=== PATIENT | male | born 1945 | race Hispanic/Latino ===

== ENCOUNTER 2018-03-02 23:14 | Observation (INO) | payer MEDICARE, BC ==
[2018-03-02 23:24] VITALS: BMI 20.2
[2018-03-02] MEDS ORDERED: Morphine 2 mg/ml ISec IVP STA (23:36)
--- NOTE | 2018-03-02 23:39 | ED PDOC ---
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 Patient denies any fever, chills, chest pain, shortness of breath, nausea, vomiting, diarrhea, neck pain, headache, dizziness , or any other complaints. Symptom Onset: Gradual Symptom Course: Unchanged Activities at Onset: Light Context: Home Past Medical History - Provider Review Nursing Documentation Reviewed: Yes - Infectious Disease Hx of Infectious Diseases: None - Cardiac Hx Cardiac Disorders: Yes Hx Hypertension: Yes Other/Comment: CAD - Pulmonary Hx Respiratory Disorders: No - Neurological Hx Neurological Disorder: No - HEENT Hx HEENT Disorder: No - Renal Hx Renal Disorder: No - Endocrine/Metabolic Hx Endocrine Disorders: No - Hematological/Oncological Hx Anemia: Yes Hx Blood Transfusions: Yes Hx Blood Transfusion Reaction: No Hx Cancer: Yes (Kidney Cancer) Other/Comment: L kidney only - Integumentary Hx Melanoma: Yes - Musculoskeletal/Rheumatological Hx Falls: No - Gastrointestinal Hx Gastrointestinal Disorders: Yes (CONSTIPATION) - Genitourinary/Gynecological Hx Genitourinary Disorders: Yes (TRANSITIONAL CELL CA(stage 4) URETER) Hx Reproductive Disorders: No - Psychiatric Hx Anxiety: Yes Hx Depression: Yes Hx Substance Use: No - Surgical History Hx Cardiac Catheterization: Yes Other/Comment: CARDIAC CATHETERIZATION WITH STENT PLACEMENT - Anesthesia Hx Anesthesia: Yes Hx Anesthesia Reactions: No Hx Malignant Hyperthermia: No Family/Social History - Physician Review Nursing Documentation Reviewed: Yes Family/Social History: Unknown Family HX Smoking Status: Former Smoker Hx Alcohol Use: No Hx Substance Use: No Allergies/Home Meds Allergies/Adverse Reactions: Allergies iodine Allergy (Verified 03/03/18 05:11) RASH Penicillins Allergy (Verified 03/03/18 05:11) DIZZINESS Home Medications: Home Meds Medication Instructions Recorded Confirmed Atorvastatin Calcium [Lipitor] 40 mg PO DAILY 07/22/15 03/03/18 Nitroglycerin 0.4 mg/hr [Nitro-Dur 0.4 mg TD DAILY 07/23/15 03/03/18 0.4 mg/hr Patch] Metoprolol Succinate XL [Toprol XL] 200 mg PO DAILY 04/15/16 03/03/18 Loperamide [Imodium] 2 mg PO Q4H PRN 08/04/16 03/03/18 Budesonide/Formoterol Fumarate 1 aer IH BID PRN 03/03/18 03/03/18 [Symbicort 160-4.5 Mcg Inhaler] Review of Systems - Physician Review All systems were reviewed & negative as marked: Yes - Review of Systems Constitutional: Normal. absent: Fevers Eyes: Normal ENT: Normal Respiratory: Normal. absent: SOB, Cough Cardiovascular: Normal. absent: Chest Pain Gastrointestinal: Abdominal Pain, Other (+right inguinal hernia). absent: Diarrhea, Nausea, Vomiting Genitourinary Male: Normal. absent: Dysuria, Frequency, Hematuria, Urinary Output Changes Musculoskeletal: Normal. absent: Back Pain, Neck Pain Skin: Normal. absent: Rash Neurological: Normal. absent: Headache, Dizziness Endocrine: Normal Hemo/Lymphatic: Normal Psychiatric: Normal Physical Exam Vital Signs Reviewed: Yes Vital Signs Temp Pulse Resp BP Pulse Ox 03/03/18 04:05 98.2 F 72 17 136/76 98 03/03/18 03:50 72 17 136/76 98 03/02/18 23:28 97.9 F 67 18 202/98 H 100 Temperature: Afebrile Blood Pressure: Hypertensive Pulse: Regular Respiratory Rate: Normal Appearance: Positive for: Well-Appearing, Non-Toxic, Comfortable Pain Distress: None Mental Status: Positive for: Alert and Oriented X 3 - Systems Exam Head: Present: Atraumatic, Normocephalic Pupils: Present: PERRL Extroacular Muscles: Present: EOMI Conjunctiva: Present: Normal Mouth: Present: Moist Mucous Membranes Neck: Present: Normal Range of Motion Respiratory/Chest: Present: Clear to Auscultation, Good Air Exchange. No: Respiratory Distress, Accessory Muscle Use Cardiovascular: Present: Regular Rate and Rhythm, Normal S1, S2. No: Murmurs Abdomen: No: Tenderness, Distention, Peritoneal Signs Genitourinary Male: Present: Hernias (Large right inguinal hernia extending in to the scrotum with palpable tenderness) Back: Present: Normal Inspection Upper Extremity: Present: Normal Inspection. No: Cyanosis, Edema Lower Extremity: Present: Normal Inspection. No: Edema Neurological: Present: GCS=15, CN II-XII Intact, Speech Normal Skin: Present: Warm, Dry, Normal Color. No: Rashes Psychiatric: Present: Alert, Oriented x 3, Normal Insight, Normal Concentration Medical Decision Making ED Course and Treatment: 03/02/18 23:36 Impression: 73 year old male complaining of lower abdominal pain and right inguinal hernia pain. Plan: -- CT Abdomen and Pelvis with IV contrast -- Labs -- IV fluids -- Zofran -- Morphine -- Reassess and disposition Prior Visits: Notes and results from previous visits were reviewed. Progress Notes: 03/02/18 23:[address] Aaron, rn medical surgical sourcing consultant, who is aware and agrees to evaluate pt. 03/03/18 00:40 Right inguinal hernia reduced without complications. Pt tolerated well. 03/03/18 00:[address] Mejia, who is aware and agrees with plan. Accepts pt in to his service. 03/03/18 00:[address] Lizeth Morel, surgeon, who is aware and agrees to consult on case. 03/03/18 03:01 Reviewed EKG, sinus bradycardia at 50 bpm. Septal infarct. Non-specific ST/T wave changes. - Lab Interpretations Lab Results: 03/02/18 23:44 03/02/18 23:44 Lab Results 03/02/18 23:44: PT 12.3, INR 1.08, APTT 31.6 03/02/18 23:44: WBC 9.1 D, RBC 5.29, Hgb 14.5, Hct 42.0, MCV 79.4 L, MCH 27.4, MCHC 34.5, RDW 16.5 H, Plt Count 105 L, MPV 8.5 03/02/18 23:44: Sodium 144, Potassium 4.4, Chloride 105, Carbon Dioxide 26, Anion Gap 17, BUN 22 H, Creatinine 1.5, Est GFR ( Amer) 55, Est GFR (Non- Af Amer) 46, Random Glucose 107, Calcium 9.5, Total Bilirubin 0.8, AST 18, ALT 22, Alkaline Phosphatase 77, Total Protein 7.4, Albumin 4.2, Globulin 3.2, Albumin/Globulin Ratio 1.3 I have reviewed the lab results: Yes - RAD Interpretation Radiology Orders: 03/02/18 23:40 ABD & PELVIS W/O PO OR IV CONT [CT] Stat 03/03/18 00:56 CHEST PORTABLE [RAD] Stat - Medication Orders Current Medication Orders: Discontinued Medications Albuterol/Ipratropium (Duoneb 3 Mg/0.5 Mg (3 Ml) Ud) 3 ml IH [id number] GOLDY Albuterol/Ipratropium (Duoneb 3 Mg/0.5 Mg (3 Ml) Ud) 3 ml IH Q2H PRN PRN Reason: Shortness of Breath Amlodipine Besylate (Norvasc) 5 mg PO DAILY GOLDY Aspirin (Aspirin Chewable) 81 mg PO DAILY GOLDY Atorvastatin Calcium (Lipitor) 40 mg PO DIN [facility] Sodium Chloride (Sodium Chloride 0.9%) 1,000 mls @ 100 mls/hr IV .Q10H [facility] Last Admin: 03/02/18 23:49 Dose: 100 mls/hr eMAR Start Stop Document 03/02/18 23:49 IT (Rec: 03/02/18 23:50 IT [id number]) Intravenous Solution Start Date 03/02/18 Start Time 23:50 Lisinopril (Zestril) 10 mg PO DAILY [facility] Metoprolol Succinate (Toprol Xl) 200 mg PO BRK [facility] Last Admin: 03/03/18 09:54 Dose: 200 mg Morphine Sulfate (Morphine) 4 mg IVP STAT STA Stop: 03/02/18 23:37 Last Admin: 03/02/18 23:49 Dose: 4 mg MAR Pain Assessment Document 03/02/18 23:49 IT (Rec: 03/02/18 23:49 IT [id number]) Pain Reassessment Is this a pain reassessment? No Sleep Is patient sleeping during reassessment? No Presence of Pain Presence of Pain Yes Pain Scale Used Pain Scale Used Numeric Location Left, Right or Bilateral Right Pain Location Body Site Groin IVP Administration Document 03/02/18 23:49 IT (Rec: 03/02/18 23:49 IT [id number]) Charges for Administration # of IVP Administrations 1 Nitroglycerin (Nitro-Dur 0.4 Mg/Hr Patch) 1 patch TD DAILY [facility] Last Admin: 03/03/18 09:43 Dose: 1 patch MAR Transdermal Patch Site Document 03/03/18 09:43 MCV (Rec: 03/03/18 09:43 MCV [id number]) Transdermal Patch Site Transdermal Patch Site Right Shoulder Ondansetron HCl (Zofran Inj) 4 mg IVP ONCE ONE Stop: 03/02/18 23:37 Last Admin: 03/02/18 23:49 Dose: 4 mg IVP Administration Document 03/02/18 23:49 IT (Rec: 03/02/18 23:49 IT [id number]) Charges for Administration # of IVP Administrations 1 - Scribe Statement The provider has reviewed the documentation as recorded by the Elle Dumont Provider Scribe Attestation: All medical record entries made by the Scribe were at my direction and personally dictated by me. I have reviewed the chart and agree that the record accurately reflects my personal performance of the history, physical exam, medical decision making, and the department course for this patient. I have also personally directed, reviewed, and agree with the discharge instructions and disposition. Disposition/Present on Arrival - Present on Arrival Any Indicators Present on Arrival: No History of DVT/PE: No History of Uncontrolled Diabetes: No Urinary Catheter: No History of Decub. Ulcer: No History Surgical Site Infection Following: None - Disposition Have Diagnosis and Disposition been Completed?: Yes Diagnosis: Inguinal hernia Disposition: HOSPITALIZED Disposition Time: 01:48 Condition: STABLE
[2018-03-02] MEDS ORDERED: Sodium Chloride 0.9% 1,000 ML IV SCH (23:45)
[2018-03-02 23:53] LABS: HEMOGLOBIN 14.5 g/dL (14.0-18.0); MEAN CELL VOLUME 79.4 fl (80.0-105.0); MEAN CORPUSCULAR HEMOGLOBIN 27.4 pg (25.0-35.0); MEAN CORPUSCULAR HGB CONC 34.5 g/dl (31.0-37.0); MEAN PLATELET VOLUME 8.5 fl (7.0-11.0); RBC 5.29 10^6/uL (3.5-6.1); RED CELL DISTRIBUTION WIDTH 16.5 % (11.5-14.5)
[2018-03-03 00:06] LABS: WHITE BLOOD COUNT 9.1 10^3/ul (4.5-11.0)
[2018-03-03 00:26] LABS: ALB/GLOB RATIO 1.3 (1.1-1.8); ALBUMIN 4.2 g/dL (3.0-4.8); CALCIUM 9.5 mg/dL (8.4-10.5)
--- NOTE | 2018-03-03 00:41 | CP.PCM.CON ---
History of Present Illness - History of Present Illness History of Present Illness: General Surgery Consult Note for Dr. Garvey Reason for consult: Right inguinal hernia 73 M with PMH that includes kidney CA s/p nephrectomy, HTN [place] [facility] [place] of right inguinal hernia that is enlarging. Patient was seen and evaluated in the ED. Patient states that he has had the hernia since 2014 but has gotten larger over the last month. Patient has been unable to address this issue because he takes care of his . The last couple days he feels as if hernia had increased in size. Patient currently denies pain. Denies fever/chills , chest pain, SOB, abdominal pain, nausea/vomiting, diarrhea, constipation, melena, hematochezia. PMH: kidney CA s/p nephrectomy, HTN Meds: As per EMR ALL: Iodine, PCN PSH: Nephrectomy FH: non-contributory Social: former smoke Review of Systems - Review of Systems All systems: reviewed and no additional remarkable complaints except (as per HPI ) Past Patient History - Infectious Disease Hx of Infectious Diseases: None - Past Medical History & Family History Past Medical History?: Yes - Past Social History Smoking Status: Former Smoker - CARDIAC Hx Cardiac Disorders: Yes Hx Hypertension: Yes Other/Comment: CAD - PULMONARY Hx Respiratory Disorders: No - NEUROLOGICAL Hx Neurological Disorder: No - HEENT Hx HEENT Problems: No - RENAL Hx Chronic Kidney Disease: No - ENDOCRINE/METABOLIC Hx Endocrine Disorders: No - HEMATOLOGICAL/ONCOLOGICAL Hx Anemia: Yes Hx Blood Transfusions: Yes Hx Blood Transfusion Reaction: No Hx Cancer: Yes (Kidney Cancer) Other/Comment: L kidney only - INTEGUMENTARY Hx Melanoma: Yes - MUSCULOSKELETAL/RHEUMATOLOGICAL Hx Falls: No - GASTROINTESTINAL Hx Gastrointestinal Disorders: Yes (CONSTIPATION) - GENITOURINARY/GYNECOLOGICAL Hx Genitourinary Disorders: Yes (TRANSITIONAL CELL CA(stage 4) URETER) Hx Reproductive Disorders: No - PSYCHIATRIC Hx Anxiety: Yes Hx Depression: Yes Hx Substance Use: No - SURGICAL HISTORY Hx Cardiac Catheterization: Yes Other/Comment: CARDIAC CATHETERIZATION WITH STENT PLACEMENT - ANESTHESIA Hx Anesthesia: Yes Hx Anesthesia Reactions: No Hx Malignant Hyperthermia: No Meds Allergies/Adverse Reactions: Allergies Allergy/AdvReac Type Severity Reaction Status Date / Time iodine Allergy RASH Verified 03/03/18 05:11 Penicillins Allergy DIZZINESS Verified 03/03/18 05:11 - Medications Medications: Current Medications Sodium Chloride (Sodium Chloride 0.9%) 1,000 mls @ 100 mls/hr IV .Q10H GOLD[facility] Last Admin: 03/02/18 23:49 Dose: 100 mls/hr Physical Exam - Constitutional Appears: No Acute Distress - Head Exam Head Exam: ATRAUMATIC, NORMOCEPHALIC - Eye Exam Eye Exam: EOMI, Normal appearance Pupil Exam: PERRL - ENT Exam ENT Exam: Mucous Membranes Moist - Respiratory Exam Respiratory Exam: NORMAL BREATHING PATTERN - Cardiovascular Exam Cardiovascular Exam: REGULAR RHYTHM - GI/Abdominal Exam GI & Abdominal Exam: Hernia (right inguinal hernia reducible without bulging), Normal Bowel Sounds, Soft. absent: Distended, Firm, Guarding, Mass, Rebound, Rigid, Tenderness - Extremities Exam Extremities exam: Positive for: normal capillary refill, pedal pulses present. Negative for: calf tenderness - Back Exam Back exam: absent: CVA tenderness (L), CVA tenderness (R) - Neurological Exam Neurological exam: Alert, CN II-XII Intact, Oriented x3 - Psychiatric Exam Psychiatric exam: Normal Affect, Normal Mood - Skin Skin Exam: Dry, Intact, Normal Color, Warm Results - Vital Signs Recent Vital Signs: Last Vital Signs Temp 97.9 F 03/02/18 23:28 Pulse 67 03/02/18 23:28 Resp 18 03/02/18 23:28 BP 202/98 H 03/02/18 23:28 Pulse Ox 100 03/02/18 23:28 - Labs Result Diagrams: 03/02/18 23:44 03/02/18 23:44 Labs: Laboratory Results - last 24 hr 03/02/18 03/02/18 23:44 23:44 WBC 9.1 D RBC 5.29 Hgb 14.5 Hct 42.0 MCV 79.4 L MCH 27.4 MCHC 34.5 RDW 16.5 H Plt Count 105 L MPV 8.5 Sodium 144 Potassium 4.4 Chloride 105 Carbon Dioxide 26 Anion Gap 17 BUN 22 H Creatinine 1.5 Est GFR ( Amer) 55 Est GFR (Non-Af Amer) 46 Random Glucose 107 Calcium 9.5 Total Bilirubin 0.8 AST 18 ALT 22 Alkaline Phosphatase 77 Total Protein 7.4 Albumin 4.2 Globulin 3.2 Albumin/Globulin Ratio 1.3 Assessment & Plan - Assessment and Plan (Free Text) Assessment: 73 M with right inguinal hernia Plan: -Plan for elective repair Wednesday 03/07 -Patient can be discharged from surgical standpoint -Medical optimization -Pre-operative work up -Further recommendations as per Dr. Guru Aaron PGY1
[2018-03-03] MEDS ORDERED: Iodixanol 320 MG/ML 100 ML BOTTLE IV ONE (00:54)
[2018-03-03 01:13] LABS: INR 1.08 (0.93-1.08); PARTIAL THROMBOPLASTIN TIME 31.6 Seconds (25.1-36.5); PROTHROMBIN TIME 12.3 SECONDS (9.4-12.5)
[2018-03-03 05:34] VITALS: BP 143/74; PULSE 52; RESP 18; TEMP 97.5
--- NOTE | 2018-03-03 06:49 | CP.PCM.PCO ---
Physician Communication Note - Physician Communication Note Physician Communication Note: Recommend OR(Herniorraphy) Today
[2018-03-03] MEDS ORDERED: Metoprolol Succinate 100 mg XL Tab PO SCH (08:00)
--- NOTE | 2018-03-03 08:20 | CP.PCM.HP ---
History of Present Illness - History of Present Illness History of Present Illness: 73 year old male with history of Coronary artery disease, hypertension , chronic obstructive pulmonary disease, hyperlipidemia and right nephrectomy for transitional cell carcinoma of the kidney presented to the ER with severe abdominal and inguinal pain. Patient says he lifted a garbage can and then felt this severe pain. Patient was given morphine and says that pain was relieved. This morning, he feels better. He will have hernia surgery by Dr. Garvey. Present on Admission - Present on Admission Any Indicators Present on Admission: No History of DVT/PE: No History of Uncontrolled Diabetes: No Urinary Catheter: No Decubitus Ulcer Present: No Review of Systems - Constitutional Constitutional: absent: Chills, Fever, Headache - Cardiovascular Cardiovascular: absent: Chest Pain, Diaphoresis, Dyspnea - Respiratory Respiratory: absent: Cough, Dyspnea, Wheezing - Gastrointestinal Gastrointestinal: absent: Abdominal Pain, Nausea, Vomiting Past Patient History - Infectious Disease Hx of Infectious Diseases: None - Past Medical History & Family History Past Medical History?: Yes - Past Social History Smoking Status: Former Smoker - CARDIAC Hx Cardiac Disorders: Yes Hx Hypertension: Yes Other/Comment: CAD - PULMONARY Hx Respiratory Disorders: No - NEUROLOGICAL Hx Neurological Disorder: No - HEENT Hx HEENT Problems: No - RENAL Hx Chronic Kidney Disease: No - ENDOCRINE/METABOLIC Hx Endocrine Disorders: No - HEMATOLOGICAL/ONCOLOGICAL Hx Anemia: Yes Hx Cancer: Yes (Kidney Cancer) Other/Comment: L kidney only - INTEGUMENTARY Hx Melanoma: Yes - MUSCULOSKELETAL/RHEUMATOLOGICAL Hx Falls: No - GASTROINTESTINAL Hx Gastrointestinal Disorders: Yes (CONSTIPATION) - GENITOURINARY/GYNECOLOGICAL Hx Genitourinary Disorders: Yes (TRANSITIONAL CELL CA(stage 4) URETER) - PSYCHIATRIC Hx Anxiety: Yes Hx Depression: Yes - SURGICAL HISTORY Hx Cardiac Catheterization: Yes Other/Comment: CARDIAC CATHETERIZATION WITH STENT PLACEMENT - ANESTHESIA Hx Anesthesia: Yes Hx Anesthesia Reactions: No Hx Malignant Hyperthermia: No Meds Allergies/Adverse Reactions: Allergies Allergy/AdvReac Type Severity Reaction Status Date / Time iodine Allergy RASH Verified 03/03/18 05:11 Penicillins Allergy DIZZINESS Verified 03/03/18 05:11 Physical Exam - Constitutional Appears: No Acute Distress - Head Exam Head Exam: ATRAUMATIC, NORMOCEPHALIC - Respiratory Exam Respiratory Exam: Clear to Auscultation Bilateral, NORMAL BREATHING PATTERN - Cardiovascular Exam Cardiovascular Exam: +S1, +S2 - GI/Abdominal Exam GI & Abdominal Exam: Hernia Additional comments: BL inguinal hernias - Extremities Exam Extremities exam: Positive for: normal inspection - Neurological Exam Neurological exam: Alert, CN II-XII Intact, Oriented x3 Results - Vital Signs Recent Vital Signs: Last Vital Signs Temp 97.5 F L 03/03/18 05:03 Pulse 52 L 03/03/18 05:03 Resp 18 03/03/18 05:03 BP 143/74 03/03/18 05:03 Pulse Ox 98 03/03/18 04:05 - Labs Result Diagrams: 03/02/18 23:44 03/02/18 23:44 Assessment & Plan - Assessment and Plan (Free Text) Assessment: Right inguinal hernia CAD COPD HLP Transitional cell carcinoma s/p right nephrectomy Plan: Patient is seen this morning. His pain has been relieved with Morphine. He is cleared for hernia repair surgery with Dr. Garvey. We will continue his maintenance medications and consult Dr. Bailey, who is his regional director.
[2018-03-03] MEDS ORDERED: Albuterol-Ipratrop 3 mg / 0.5 (3 ml) UD IH PRN (08:21)
[2018-03-03 08:44] VITALS: O2SAT 97
--- NOTE | 2018-03-03 09:25 | RAD ---
HISTORY: medical clearance COMPARISON: 09/28/2016 FINDINGS: LUNGS: No active pulmonary disease. PLEURA: No significant pleural effusion identified, no pneumothorax apparent. CARDIOVASCULAR: Normal. OSSEOUS STRUCTURES: No significant abnormalities. VISUALIZED UPPER ABDOMEN: Normal. OTHER FINDINGS: Right-sided Port-A-Cath IMPRESSION: No active disease.
--- NOTE | 2018-03-03 09:49 | CT ---
PROCEDURE: CT Abdomen and Pelvis without intravenous contrast HISTORY: abdominal pain COMPARISON: 02/02/2018 TECHNIQUE: Technique. Contrast dose: Radiation dose: Total exam DLP = 518 mGy-cm. This CT exam was performed using one or more of the following dose reduction techniques: Automated exposure control, adjustment of the mA and/or kV according to patient size, and/or use of iterative reconstruction technique. FINDINGS: LOWER THORAX: Mild bibasilar fibronodular change. LIVER: Heterogeneous liver; correlate with liver function studies. . No gross lesion or ductal dilatation. GALLBLADDER AND BILE DUCTS: Unremarkable. PANCREAS: Unremarkable. No gross lesion or ductal dilatation. SPLEEN: Splenomegaly. ADRENALS: 1.9 centimeter hypodense nodule the left adrenal gland. KIDNEYS AND URETERS: Status post right nephrectomy with fluid in the right renal fossa. VASCULATURE: 3.5 centimeter aortic aneurysm. BOWEL: Mild distention small bowel loops in the right mid abdomen compatible ileus. No obstruction. No gross mural thickening. APPENDIX: Unremarkable. Normal appendix. PERITONEUM: Unremarkable. No free fluid. No free air. LYMPH NODES: Unremarkable. No enlarged lymph nodes. BLADDER: Unremarkable. REPRODUCTIVE: Unremarkable. BONES: No acute fracture. OTHER FINDINGS: None. IMPRESSION: Status post right nephrectomy with fluid in the right renal fossa, unchanged.Mild distention small bowel loops in the right mid abdomen compatible with an ileus.
[2018-03-03] MEDS ORDERED: Nitroglycerin 0.4 mg/hr Top Patch TD SCH (10:00)
[2018-03-03] MEDS ORDERED: Albuterol-Ipratrop 3 mg / 0.5 (3 ml) UD IH SCH (14:00)
--- NOTE | 2018-03-03 17:25 | CON ---
DATE: 03/03/2018 INDICATIONS: Preoperative right inguinal hernia repair, coronary artery disease, remote myocardial infarction. HISTORY OF PRESENT ILLNESS: This is a 73-year-old man well known to me with admission to the emergency room yesterday with severe right inguinal hernia pain which began after he lifted a garbage can and noted severe pain in the groin. The hernia was reduced. He was given morphine. He feels better this morning. Surgery was planned for later today. There was no chest pain, shortness of breath, orthopnea, PND, syncope, presyncope, lightheadedness, dizziness, vertigo, palpitations, edema, claudication, fever, chills, cough, sputum production, hemoptysis, nausea, vomiting, diarrhea, constipation, or melena. PAST MEDICAL HISTORY: Includes coronary artery disease with remote myocardial infarction and remote coronary intervention. He has transitional cell carcinoma and has undergone a right radical nephrectomy with immunotherapy apparently with good response. He has a history of hypertension, hyperlipidemia, and COPD. He is a former smoker. He has a platelet count of 105,000. There is no history of congestive heart failure, rheumatic fever, arrhythmia, stroke, TIA, diabetes, or gout. MEDICATIONS: At the time of admission include lisinopril, aspirin, Norvasc, Cipro, Lipitor, Nitro-Dur patch, Symbicort, metoprolol, Zantac, and albuterol. ALLERGIES: NOTED TO PENICILLIN, IODINE, AND HE IS INTOLERANT TO HYDROCHLOROTHIAZIDE. SOCIAL HISTORY: He lives at home. He is ambulatory. He is a former smoker. He does not drink alcohol significantly. FAMILY HISTORY: Noncontributory. REVIEW OF SYSTEMS: A 10-point review of systems is otherwise unremarkable except as noted above. PHYSICAL EXAMINATION: GENERAL: He is a well-developed male lying in bed, in no acute distress. VITAL SIGNS: Notable for pulse 67; afebrile; blood pressure 202/98, repeat 143/74; respirations 18; O2 sat 98% to 100% on room air. HEENT: Reveal no neck vein distention, thyromegaly, or carotid bruit. Mucous membranes moist. Conjunctivae pink. Neck supple. LUNGS: Lung garcia clear. HEART: Reveals normal fist and second heart sounds. There is a soft systolic murmur along the left sternal border. ABDOMEN: Soft, bowel sounds present. No mass, organomegaly, tenderness, rebound, or guarding. There is some tenderness in the right inguinal area. NEUROLOGIC: He is awake, alert, and oriented. PSYCHIATRIC: Normal as to mood and affect. SKIN: Warm and dry. No rash or cellulitis. LABORATORY AND IMAGING: Chest x-ray is not read yet. No CHF by my reading. EKG is sinus rhythm, benign, no acute changes. CT scan of the abdomen and pelvis was done, report is pending. CBC is unremarkable except that the platelet count is 105,000. PT, INR, and PTT unremarkable. Electrolytes, BUN, creatinine, blood sugar, LFTs unremarkable. IMPRESSION: Lobo Rodriges is a 73-year-old man with a painful right inguinal hernia. He has a history of coronary artery disease, remote myocardial infarction, remote coronary intervention, and more recent transitional cell carcinoma with a right radical nephrectomy and immunotherapy. There is a history of hypertension, hyperlipidemia, chronic obstructive pulmonary disease. His platelet count is 105,000 currently. PLAN: He should be considered at mild to moderately increased cardiac risk. I recommend continuing metoprolol throughout the perioperative period including a dose this morning pre-op. I will continue his other cardiac meds post-op including aspirin, Lipitor, Nitro-Dur patch, amlodipine, and lisinopril. I will follow along with you. We will make additional recommendations based on his clinical course. Mik Bailey MD [email or web address]
--- NOTE | 2018-03-03 21:26 | CARD ---
APPROVED REPORT EKG Measurement Heart [id number] ID [id number] <Conclusion> Sinus bradycardia Low voltage QRS Septal infarct, age undetermined Abnormal ECG
--- NOTE | 2018-03-03 21:32 | CARD ---
APPROVED REPORT EKG Measurement Heart [id number] <Conclusion> Sinus bradycardia Low voltage QRS Septal infarct, age undetermined Abnormal ECG
== END 2018-03-03 11:48 | disposition home or self-care (01) ==
LOC: ED 23:14 → ERH 03-03 01:48 → INTOOBSV 03-03 01:48 → ERH 03-03 02:32 → 5RSO 03-03 04:02
PROVIDERS: ADMIT Internal Medicine; ATTEND Internal Medicine
DX: K40.90 Unilateral inguinal hernia, without obstruction or gangrene, not specified as recurrent (principal); Z85.528 Personal history of other malignant neoplasm of kidney; I25.10 Atherosclerotic heart disease of native coronary artery without angina pectoris; J44.9 Chronic obstructive pulmonary disease, unspecified; I10 Essential (primary) hypertension; D64.9 Anemia, unspecified; E78.5 Hyperlipidemia, unspecified; I25.2 Old myocardial infarction; Z90.5 Acquired absence of kidney; Z79.51 Long term (current) use of inhaled steroids; Z87.891 Personal history of nicotine dependence
CPT/HCPCS: 71045; 74176; 80053; 85027; 85610; 85730; 93005; 96374; 96375; 99284; G0378; J2270; J2405; J7030; Q9967

== ENCOUNTER 2018-03-07 08:10 | Day surgery (SDC) | payer MEDICARE, BC ==
[2018-03-07] MEDS ORDERED: Etomidate 20 mg/10ml Inj IV ONE (10:30)
[2018-03-07] MEDS ORDERED: Succinylcholine 200 mg/10 ml Inj IV ONE (10:31)
[2018-03-07] MEDS ORDERED: Propofol 10 mg/ml Inj (20 ML) ONE (10:35)
[2018-03-07] MEDS ORDERED: Bupivacaine 0.5% Inj(30mL) ONE (10:36)
[2018-03-07] MEDS ORDERED: Lidocaine 1% Inj (20ml) ONE (10:36)
[2018-03-07] MEDS ORDERED: Bupivacaine Liposomal Inj 20 ml ONE (10:55)
[2018-03-07] MEDS ORDERED: Sevoflurane - Inhalation Anesthetic Liq (250 ml) ONE (10:55)
[2018-03-07] MEDS ORDERED: Rocuronium 10 mg/ml (5 ml) ONE (11:02)
[2018-03-07] MEDS ORDERED: Neostigmine Methylsulfate 3mg/3ml Syringe IV ONE (11:12)
[2018-03-07] MEDS ORDERED: ePHEDrine 50 mg/ml Inj ONE (11:15)
[2018-03-07] MEDS ORDERED: Desflurane Inhalation Anesthetic Liq (240 ml) ONE (11:39)
[2018-03-07] MEDS ORDERED: Esmolol 100 mg/10ml Inj IV ONE (12:14)
--- NOTE | 2018-03-07 12:36 | PCM.SURG1 ---
Surgeon's Initial Post Op Note - Surgeon's Notes Surgeon: Dr. Felix Garvey Mushroom Spawn Maker: Shea Melchor, PGY2 Type of Anesthesia: General Endo Anesthesia Administered By: Dr. Payne Pre-Operative Diagnosis: right inguinal hernia Operative Findings: right direct and indirect inguinal hernia Post-Operative Diagnosis: Right direct and indirect inguinal hernia Operation Performed: right inguinal hernia repair with mesh, exparel injection Specimen/Specimens Removed: none Estimated Blood Loss: EBL {In ML}: 10 Blood Products Given: N/A Drains Used: No Drains Post-Op Condition: Fair Date of Surgery/Procedure: 03/07/18 Time of Surgery/Procedure: 10:30
[2018-03-07] MEDS ORDERED: Oxycodone/Acetaminophen 5/325 mg Tab PO PRN (12:38)
[2018-03-07] MEDS ORDERED: Albuterol HFA 90 mcg/actuation (8 g) IH PRN (13:07)
--- NOTE | 2018-03-08 02:00 | HP ---
DATE OF EXAM: 03/07/18 HISTORY OF PRESENT ILLNESS: Patient is a 73-year-old white male. He was admitted and treated for right inguinal hernia electively. The patient's surgeon is Dr. Felix Garvey. PAST MEDICAL HISTORY: Patient's past history is significant. He has history of coronary artery disease, hypertension, hyperlipidemia, chronic lung disease. Patient has also had transitional cell carcinoma on the right kidney, which was removed 1 year ago. The patient had been hospitalized in the past for coronary artery disease. His cardiac mgmt consultant is Dr. Bailey. Patient is seen postop. PHYSICAL EXAMINATION: VITAL SIGNS: The pulse is 50, blood pressure 142/70, respirations 18, O2 sat 98%. HEENT: The patient's head is normocephalic. NECK: Carotid pulses are present. JVP is flat. No lymphadenopathy. LUNGS: Trachea is central. Breath sounds are vesicular. No adventitious sounds. HEART: Normal sinus rhythm. S1 and S2 present, bradycardia. ABDOMEN: Soft. Patient had complex ventral surface of the abdomen. The scar represents surgical scar from previous surgery to excise his right kidney. Patient has surgical site on the right inguinal area that is from the present inguinal hernia surgery performed. MEDICATIONS: Consists of Colace. Patient is on nitroglycerine patch, amlodipine 10 mg daily, Pepcid 20 mg daily. Patient is on Percocet for pain, metoprolol 200 mg p.o. daily. We will have to cut it down to 100 mg because the patient is bradycardic at this time. He is also on albuterol every 6 hours. He is getting it by metered-dose inhaler 2 puffs every 6 hours. LABORATORY DATA: Blood work is posted from last week. The patient's medications will be continued. He will be kept under observation overnight and probably be discharged in the morning. Stewart Mejia MD IVET
[2018-03-08 08:15] VITALS: RESP 20; TEMP 98.4; O2SAT 95
[2018-03-08 09:59] VITALS: BP 134/80; PULSE 68
[2018-03-08] MEDS ORDERED: Metoprolol Succinate 100 mg XL Tab PO SCH (10:00)
[2018-03-08] MEDS ORDERED: Nitroglycerin 0.4 mg/hr Top Patch TD SCH (10:00)
[2018-03-08 10:31] LABS: BASO # 0.04 K/mm3 (0.0-2.0); BASO % 0.4 % (0.0-3.0); BLOOD UREA NITROGEN 21 mg/dL (7-21); CALCIUM 9.1 mg/dL (8.4-10.5); EOS # 0.3 (0.0-0.7); EOS % 2.7 % (1.5-5.0); GFR AFRICAN-AMERICAN > 60; GFR NON-AFRICAN AMERICAN 59; GRAN # 8.44 (1.4-6.5); GRAN % 75.4 % (50.0-68.0); HEMOGLOBIN 13.9 g/dL (14.0-18.0); LYMPH # 1.4 (1.2-3.4); LYMPH % 12.6 % (22.0-35.0); MEAN CELL VOLUME 80.3 fl (80.0-105.0); MEAN CORPUSCULAR HEMOGLOBIN 27.1 pg (25.0-35.0); MEAN CORPUSCULAR HGB CONC 33.8 g/dl (31.0-37.0); MEAN PLATELET VOLUME 8.8 fl (7.0-11.0); MONO % 8.9 % (1.0-6.0); RBC 5.12 10^6/uL (3.5-6.1); RED CELL DISTRIBUTION WIDTH 16.5 % (11.5-14.5); WHITE BLOOD COUNT 11.2 10^3/ul (4.5-11.0)
--- NOTE | 2018-03-08 13:27 | PN ---
DATE: 03/08/2018 SUBJECTIVE: The patient is seen first postop day. He had hernia surgery, right inguinal hernia repair by Dr. Felix Garvey. He had conventional repair with patch device to reinforce the . The patient is comfortable, sitting in the chair. He has no complaints. PHYSICAL EXAMINATION: VITAL SIGNS: The patient's pulse is 68, blood pressure 134/80, his temperature is 98, O2 sat 97%. HEENT: His head is normocephalic. LUNGS: Clear. HEART: Normal sinus rhythm. ABDOMEN: Soft. There is evidence of surgical dressing for the right inguinal area. Patient is waiting for Dr. Garvey to see him. He probably will be discharged this morning to go home and follow up with Dr. Garvey in his office. MEDICATIONS: Consists of amlodipine. Patient is on metoprolol, albuterol. Patient has at home an inhaler for chronic lung disease. Patient is also on nitroglycerin patch 0.4 mg. He is clinically stable at this time. Stewart Mejia MD IVET
--- NOTE | 2018-03-08 13:43 | CP.PCM.DIS ---
Provider - Provider Attending physician: Felix Garvey MD Time Spent in preparation of Discharge (in minutes): 35 Diagnosis - Discharge Diagnosis (1) Inguinal hernia, right Status: Acute (2) Post-operative pain Status: Acute (3) Hypertension Status: Chronic (4) Coronary artery disease Status: Chronic Hospital Course - Lab Results Lab Results: Most Recent Lab Values WBC 11.2 10^3/ul (4.5-11.0) H D 03/08/18 10:15 RBC 5.12 10^6/uL (3.5-6.1) 03/08/18 10:15 Hgb 13.9 g/dL (14.0-18.0) L 03/08/18 10:15 Hct 41.1 % (42.0-52.0) L 03/08/18 10:15 MCV 80.3 fl (80.0-105.0) 03/08/18 10:15 MCH 27.1 pg (25.0-35.0) 03/08/18 10:15 MCHC 33.8 g/dl (31.0-37.0) 03/08/18 10:15 RDW 16.5 % (11.5-14.5) H 03/08/18 10:15 Plt Count 101 10^3/uL (120.0-450.0) L 03/08/18 10:15 MPV 8.8 fl (7.0-11.0) 03/08/18 10:15 Gran % 75.4 % (50.0-68.0) H 03/08/18 10:15 Lymph % (Auto) 12.6 % (22.0-35.0) L 03/08/18 10:15 Mcminn % (Auto) 8.9 % (1.0-6.0) H 03/08/18 10:15 Eos % (Auto) 2.7 % (1.5-5.0) 03/08/18 10:15 Baso % (Auto) 0.4 % (0.0-3.0) 03/08/18 10:15 Gran # 8.44 (1.4-6.5) H 03/08/18 10:15 Lymph # (Auto) 1.4 (1.2-3.4) 03/08/18 10:15 Mcminn # (Auto) 1.0 (0.1-0.6) H 03/08/18 10:15 Eos # (Auto) 0.3 (0.0-0.7) 03/08/18 10:15 Baso # (Auto) 0.04 K/mm3 (0.0-2.0) 03/08/18 10:15 Sodium 141 mmol/L (132-148) 03/08/18 10:15 Potassium 4.2 mmol/L (3.6-5.0) 03/08/18 10:15 Chloride 104 mmol/L (98-107) 03/08/18 10:15 Carbon Dioxide 27 mmol/L (21-33) 03/08/18 10:15 Anion Gap 15 (10-20) 03/08/18 10:15 BUN 21 mg/dL (7-21) 03/08/18 10:15 Creatinine 1.2 mg/dl (0.8-1.5) 03/08/18 10:15 Est GFR ( Amer) > 60 03/08/18 10:15 Est GFR (Non-Af Amer) 59 03/08/18 10:15 Random Glucose 103 mg/dL (70-110) 03/08/18 10:15 Calcium 9.1 mg/dL (8.4-10.5) 03/08/18 10:15 - Hospital Course Hospital Course: Patient is a 73M who was admitted after same day surgery for right inguinal hernia. Patient underwent an open right inguinal hernia repair with mesh without complication and was admitted for extended recovery for pain management. Patient's primary physician, Dr. Mejia, was consulted for management of his multiple medical problems. Patient had some bleeding from the surgical incision site overnight that was controlled with pressure dressing--no clinical sign of any hematoma or retroperitoneal bleeding. Patient remained hemodynamically stable, with hgb adequate the next day. Patient urinated, ambulated, and tolerated heart healthy diet. Was discharged home with instructions to follow up with DR. Garvey in his office in 1 week. For full hospital course, refer to chart Discharge Exam - Head Exam Head Exam: ATRAUMATIC, NORMOCEPHALIC - Eye Exam Eye Exam: Normal appearance. absent: Conjunctival injection, Scleral icterus - ENT Exam ENT Exam: Mucous Membranes Moist, Normal Oropharynx - Respiratory Exam Respiratory Exam: NORMAL BREATHING PATTERN, UNREMARKABLE. absent: Accessory Muscle Use - Cardiovascular Exam Cardiovascular Exam: RRR - GI/Abdominal Exam GI & Abdominal Exam: Soft. absent: Distended, Tenderness - Exam Exam: Scrotal Swelling (mild), Testicular Tenderness - Extremities Exam Extremities exam: normal inspection, pedal pulses present Additional comments: Incision covered in a pressure dressing, underlying dressing with moderate amount of sanguinous saturation--not expanded beyond the previously demarcated area - Back Exam Back exam: absent: CVA tenderness (L), CVA tenderness (R) Additional comments: no eccymosis - Neurological Exam Neurological exam: Alert, Oriented x3 - Psychiatric Exam Psychiatric exam: Normal Affect, Normal Mood - Skin Skin Exam: Dry, Intact, Normal Color, Warm Discharge Plan - Discharge Medications Prescriptions: traMADol [Ultram] 50 mg PO TID PRN #15 tab PRN Reason: Pain, Moderate (4-7) - Follow Up Plan Condition: GOOD Disposition: HOME/ ROUTINE Instructions: High Blood Pressure in Adults, Heart Healthy Diet, Hernia Repair (DC), Open Herniorrhaphy (DC), Laparoscopic Herniorrhaphy (DC), Inguinal Hernia (DC) Additional Instructions: No heavy lifting. You may shower. Follow up with Dr. Garvey in 1 week. Follow up with primary care provider. Return to Local ER if symptoms worsen.
--- NOTE | 2018-03-08 22:37 | OP ---
PROCEDURE DATE: 03/07/2018 SURGEON: Felix Garvey MD ARMATURE AND ROTOR WINDER: Shea Melchor DO, PGY-2 GROUND WATER CONTRACTOR: Dr. Payne. ANESTHESIA: General endotracheal - Exparel (20 mL). PREOPERATIVE DIAGNOSIS: Massive right inguinal hernia (reduced). POSTOPERATIVE FINDING: Right pantaloon (direct and indirect) right inguinal hernia. PROCEDURE: Right inguinal hernia repair with mesh. OPERATIVE INDICATION: The patient is a 73-year-old male who enters the hospital 4 days earlier with massive incarcerated new-onset right inguinal hernia. In the emergency room, the emergency physician (Dr. Green) was able to reduce the hernia and the patient's symptoms became remarkably improved. By morning, the patient was asymptomatic, hungry and was worried about his who has advanced parkinsonism and needs to be attended to completely at all times and requested if he could go home and come back after the weekend after he arranged someone to take care of her. Discussion was held with the patient's attending, Dr. Mejia and he was able to be discharged and then brought back today for semi-urgent inguinal herniorrhaphy. Risks, benefits, alternatives and their anticipated outcomes were discussed with the patient and he signs the informed consent. OPERATIVE NOTE: The patient was brought from the same-day holding area where the involved side is marked and he undergoes appropriate time-out procedure and identification by his wristband. He was then placed on the operative table in a supine manner and undergoes the induction of general anesthesia and the insertion of an endotracheal tube and sequential compression devices placed on his lower extremities. The right side of the abdomen is electrically clipped, prepped with Hibiclens chlorhexidine preparation and the patient was then aseptically draped. Transverse incision was made over the inguinal canal on the right with sharp dissection and electrocoagulating cautery down through the subcutaneous tissues to the external oblique aponeurosis below. Vessels were coagulated and the external oblique was incised, and the inguinal hernia is encountered and content reduced. The hernia sac is completely mobilized, dissected free and opened and found to have a communication into the scrotum, but an extremely large and patulous defect on the inguinal fluorine constituting the entire direct defect. The combination of the direct and the indirect hernia are describe best as a pantaloon-type hernia and this was corrected with a mesh with codeine (ULTA) and inserted into the peritoneal cavity with a coated side against the intestine and closed with a pursestring suture. It is elected at this point now to close the inguinal fluorine further with a running continuous 2-0 Prolene suture from the shelving portion of Poupart's ligament to the conjoint tendon and back. For further reinforcement, a Marlex mesh was placed on the inguinal fluorine, secured with 2-0 Surgidac polyester suture and the external oblique was now closed with the same one polyester suture. The fluorine and skin are now infiltrated with the Exparel for postoperative analgesia and the skin was closed with subcutaneous 3-0 Polysorb sutures and the AutoSuture skin stapler. A dry dressing was applied. The patient was awakened, extubated and transported to the recovery room in a satisfactory condition. Sponge, instrument and suture count were verified as correct at the end of the procedure. Estimated blood loss during this procedure was less than 30 mL of blood. This dictation will be electronically signed without being read. Felix Garvey MD
== END 2018-03-08 12:08 | disposition home or self-care (01) ==
LOC: SDS 08:10 → 5RNO 14:35 → SDS 03-08 12:08
PROVIDERS: ATTEND Surgery
DX: K40.30 Unilateral inguinal hernia, with obstruction, without gangrene, not specified as recurrent (principal); I10 Essential (primary) hypertension; I25.10 Atherosclerotic heart disease of native coronary artery without angina pectoris; E78.5 Hyperlipidemia, unspecified; J44.9 Chronic obstructive pulmonary disease, unspecified; G89.18 Other acute postprocedural pain
CPT/HCPCS: 36415; 49507; 80048; 85025; C1781 ×2; J0330; J2001; J2405; J2704; J2710; J2765; J3010; J7120